=== PATIENT | male | born 1960 | race Caucasian/White ===

== ENCOUNTER 2016-10-12 21:23 | Emergency (ER) | payer OTHER ==
[~2016-10-12] VITALS: Ht 190.5 cm; Wt 72.7 kg
[2016-10-12 22:09] LABS: HEMATOCRIT 36.8 % (38.0-50.0); MCH 29.8 PG (29.0-34.0); MCHC 33.2 G/DL (30.0-36.0); MCV 89.8 FL (86-99); MEAN PLAT.VOLUME 11.4 uM^3 (9.0-12.4); PLATELET COUNT 299 K/uL (156-360); RBC DIS.WIDTH-CV 12.8 % (11.8-14.6); RBC DIS.WIDTH-SD 42.2 % (39-53)
[2016-10-12 22:18] LABS: CHLORIDE 104 mEq/L (99-109); POTASSIUM 4.8 mEq/L (3.7-5.4); SODIUM 139 mEq/L (136-147)
[2016-10-12 22:20] LABS: GLUCOSE 95 mg/dL (70-99)
[2016-10-12 22:21] LABS: ANION GAP 11 MEQ/L (2-14)
[2016-10-12 22:22] LABS: TOTAL BILIRUBIN 0.4 mg/dL (0.0-1.0)
[2016-10-12 22:24] LABS: ALKALINE PHOSPHATASE 87 IU/L (3-129)
[2016-10-12 22:25] LABS: GFR ESTIMATE (CALCULATED) > 59 mL/min/; UREA NITROGEN (BUN) 13 mg/dL (9-23)
[2016-10-12 22:27] LABS: LIPASE 53 U/L (1.0-51.0)
[2016-10-13 00:42] VITALS: BP 127/85
== END 2016-10-13 00:46 | disposition home or self-care (01) ==
LOC: EME 21:23
PROVIDERS: Emergency Medicine
DX: S16.1XXA Strain of muscle, fascia and tendon at neck level, initial encounter (principal); S39.012A Strain of muscle, fascia and tendon of lower back, initial encounter; S01.81XA Laceration without foreign body of other part of head, initial encounter; V49.40XA Driver injured in collision with unspecified motor vehicles in traffic accident, initial encounter; R10.9 Unspecified abdominal pain; F41.9 Anxiety disorder, unspecified; M19.90 Unspecified osteoarthritis, unspecified site; Z96.651 Presence of right artificial knee joint
CPT/HCPCS: 70450; 71250; 72125; 72128; 72131; 74176; 80053; 83690; 85027; 99281; 99283; J7030